=== PATIENT | female | born 1965 | race Caucasian/White ===

== ENCOUNTER 2018-04-10 12:47 | Emergency (ER) | payer MEDICAID ==
[~2018-04-10] VITALS: Ht 154.9 cm; Wt 98.4 kg
[2018-04-10] MEDS ORDERED: SYNTHROID100 MC1 PO (13:09)
[2018-04-10] MEDS ORDERED: NEURONTIN 300300 M1 PO (13:09)
[2018-04-10] MEDS ORDERED: LEVOXYL137 MCG PO (13:13)
[2018-04-10] MEDS ORDERED: ACETAMINOPHEN-1 EAC1 PO (13:13)
[2018-04-10] MEDS ORDERED: AMOXICILLIN 50500 MG PO (13:13)
[2018-04-10 13:19] VITALS: BP 132/94
== END 2018-04-10 13:22 | disposition home or self-care (01) ==
LOC: M.ERS 12:47
DX: K08.89 Other specified disorders of teeth and supporting structures (principal); Z76.0 Encounter for issue of repeat prescription; F41.9 Anxiety disorder, unspecified; E03.9 Hypothyroidism, unspecified